=== PATIENT | male | born 1990 | race Asian ===

== ENCOUNTER 2021-08-05 12:48 | Emergency (ER) | payer OTHER, BC ==
[~2021-08-05] VITALS: Ht 170.2 cm; Wt 63.5 kg
[2021-08-05] MEDS ORDERED: Cyclobenzaprine5 MG PO (15:10)
[2021-08-05] MEDS ORDERED: OXAYDO5 M1 PO (15:10)
== END 2021-08-05 16:11 | disposition home or self-care (01) ==
LOC: ER 12:48
DX: S16.1XXA Strain of muscle, fascia and tendon at neck level, initial encounter (principal); M25.512 Pain in left shoulder; R07.9 Chest pain, unspecified; V43.02XA Car driver injured in collision with other type car in nontraffic accident, initial encounter; Y92.415 Exit ramp or entrance ramp of street or highway as the place of occurrence of the external cause
CPT/HCPCS: 70450; 72125; A9270